=== PATIENT | female | born 1950 | race American Indian/Alaskan Native ===

== ENCOUNTER 2016-12-18 06:33 | Day surgery (SDC) | payer OTHER, MEDICARE ==
[~2016-12-18 06:33] MED LIST: Dextrose 5%-0.45% NaCl 1,000 ML IV SCH; Midazolam 1 MG/ML 2 ML SDV ONE; Sodium Chloride 0.9% 10 ML Syringe FLUSH PRN; fentaNYL 100 MCG/2 ML SDV ONE
[2016-12-18] MEDS ORDERED: Dextrose 5%-0.45% NaCl 1,000 ML IV SCH (07:00)
[2016-12-18] MEDS ORDERED: Sodium Chloride 0.9% 10 ML Syringe FLUSH PRN (07:00)
[2016-12-18] MEDS ORDERED: Midazolam 1 MG/ML 2 ML SDV IV ONE ×3 (07:10→14:36)
[2016-12-18] MEDS ORDERED: fentaNYL 100 MCG/2 ML SDV IV ONE ×3 (07:10→14:36)
[2016-12-18 09:32] VITALS: BP 136/65
--- NOTE | 2016-12-18 10:18 | OR ---
DATE: 12/18/2016 PROCEDURE: Esophagogastroduodenoscopy and multiple pinch biopsies. INSTRUMENT USED: GIF-H180 Olympus video panendoscope. PREMEDICATIONS: No oral topical anesthesia used. Fentanyl 100 mcg intravenous, Versed 2 mg intravenous. The procedure was done under pulse oximetry, BP recording, and monitoring manager. INDICATION: The patient with persistent abdominal pain and dyspepsia, unexplained, and not responsive to medical measures. Esophagogastroduodenoscopy is performed for detection of any active erosive lesions, Isidro's esophagus and/or malignancy also under consideration, H. pylori status to be determined, small bowel biopsies to be obtained for celiac disease if indicated, endoscopic hemostasis therapy if needed. DESCRIPTION OF PROCEDURE: The scope was passed with ease. Adequate visualization of the esophagus was made from proximal to distal areas. No upper esophageal lesions identified. No distal esophageal stricture. No uphill or downhill esophageal varices. No Flor-Cowan tear. No evidence of erosive esophagitis by Forest criteria. No esophageal polyp or tumor mass identified. Z-line was seen at around 40 cm distal to the oral verge, configuration consistent with grade 1 by ZAP classification. No proximal gastric varices noted. Gastric fundus examination by retroflexion showed no polypoid lesions. No gastric ulcer, malignant mass, or vascular ectasia identified. Duodenal bulb showed no ulcer. Visualized second part of the duodenum was unremarkable. Multiple pinch biopsies, 4 in number were taken from different areas of the second part of the duodenum, tissues were also obtained from 9 and 12 o'clock positions of the duodenal bulb and sent for any histopathologic evidence of celiac disease. Multiple pinch biopsies were also obtained from the gastric antrum and proximal body and sent for PyloriTek test for H. pylori and histopathology. No bleeding was noted from any of the visualized areas at the completion of examination. Photographs were taken of the duodenal bulb, gastric antrum, fundus, and distal esophagus. IMPRESSION: Normal study. The patient tolerated the procedure well. [facility] /[id number]
== END 2016-12-18 09:25 | disposition home or self-care (01) ==
LOC: DL.ENDO 06:33
PROVIDERS: ATTEND Internal Medicine Gastroenterology
DX: K31.89 Other diseases of stomach and duodenum (principal); Z88.8 Allergy status to other drugs, medicaments and biological substances
CPT/HCPCS: 43239; 87077; J2250; J3010; J7042; 88305

== ENCOUNTER 2021-06-04 19:40 | Emergency (ER) | payer MEDICARE, OTHER ==
[2021-06-04] MEDS ORDERED: Cyclobenzaprine 10 MG Tab PO ONE (19:41)
[2021-06-04 20:38] LABS: ANION GAP 15.7 mEq/L (7-13)
--- NOTE | 2021-06-04 20:43 | EDM.PDOC ---
ED HPI GENERAL MEDICAL PROBLEM - General Chief Complaint: Genitourinary Problem Stated Complaint: KIDNEYS ON LEFT SIDE HURT Time Seen by Provider: 06/04/21 20:10 Source of Information: Reports: Patient, RN, RN Notes Reviewed History Limitations: Reports: No Limitations - History of Present Illness INITIAL COMMENTS - FREE TEXT/NARRATIVE: Dago is a 71 y/o female who presents to the ED via personal vehicle with complaints of left flank pain and decreased urine volume. The patient states her symptoms began one week ago, after moving several baskets of laundry up her stairs, and have maintained in severity over that time. Additionally, she reports shaking chills that began three days ago. She denies fever, nausea, vomiting, abdominal pain, dysuria, hematuria, diarrhea, or constipation. She denies saddle paraesthesia, incontinence of bowel/bladder, or inability to urinate. She has taken one dose of ibuprofen 600mg with no alleviation in symptoms. 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 Left Flank Pain Score (Numeric/FACES): 5 - Related Data Allergies Allergy/AdvReac Type Severity Reaction Status Date / Time fexofenadine Allergy Other Verified 06/04/21 19:59 fluticasone Allergy Other Verified 06/04/21 19:59 formoterol Allergy Other Verified 06/04/21 19:59 lactose Allergy Other Verified 06/04/21 19:59 loratadine Allergy Seizure Verified 06/04/21 19:59 meloxicam [From Mobic] Allergy Other Verified 06/04/21 19:59 metformin Allergy Other Verified 06/04/21 19:59 phenytoin Allergy Other Verified 06/04/21 19:59 pseudoephedrine Allergy Seizure Verified 06/04/21 19:59 Home Meds: Home Meds PHENobarbitaL [PHENobarbital] 32.4 mg PO QID 03/14/14 [History] Pantoprazole [Pantoprazole Sodium] 40 mg PO DAILY 03/14/14 [History] Albuterol [Proair HFA] 2 puff INH Q6HR PRN 12/07/14 [History] Tiotropium [Spiriva Handihaler] 18 mcg INH ASDIRECTED 11/27/15 [History] Aspirin 325 mg PO DAILY 12/14/15 [History] atorvaSTATin [Lipitor] 20 mg PO BEDTIME 01/06/16 [History] Past Medical History HEENT History: Reports: Allergic Rhinitis, Impaired Vision Cardiovascular History: Reports: High Cholesterol Respiratory History: Reports: COPD Gastrointestinal History: Reports: Diverticulosis, GERD, Helicobacter Pylori Genitourinary History: Reports: UTI, Recurrent 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: Reports: Musculoskeletal History: Reports: Arthritis Neurological History: Reports: Seizure Psychiatric History: Reports: None Endocrine/Metabolic History: Reports: Diabetes, Type II, Other (See Below) Other Endocrine/Metabolic History: PREDIABETES Hematologic History: Reports: None Immunologic History: Reports: None Oncologic (Cancer) History: Reports: None Dermatologic History: Reports: Other (See Below) Other Dermatologic History: ACNE ROSACEA - Infectious Disease History Infectious Disease History: Reports: Chicken Pox, Measles, Mumps - Past Surgical History Head Surgeries/Procedures: Reports: None HEENT Surgical History: Reports: None Cardiovascular Surgical History: Reports: None Respiratory Surgical History: Reports: None GI Surgical History: Reports: Appendectomy, Cholecystectomy, Colonoscopy, EGD Female Surgical History: Reports: Cystoscopy Endocrine Surgical History: Reports: None Neurological Surgical History: Reports: None Musculoskeletal Surgical History: Reports: None Oncologic Surgical History: Reports: None Dermatological Surgical History: Reports: None Social & Family History - Family History Family Medical History: No Pertinent Family History Cardiac: Reports: CAD, High Cholesterol, Hypertension - Tobacco Use Tobacco Use Status *Q: Current Every Day Tobacco User Years of Tobacco use: 40 Packs/Tins Daily: 0.5 - Caffeine Use Caffeine Use: Reports: Coffee - Recreational Drug Use Recreational Drug Use: No - Living Situation & Occupation Living situation: Reports: , with Family Occupation: Employed ED ROS GENERAL - Review of Systems Review Of Systems: Comprehensive ROS is negative, except as noted in HPI. ED EXAM, RENAL/ - Physical Exam Exam: See Below Exam Limited By: No Limitations General Appearance: Alert, No Apparent Distress Eye Exam: Bilateral Eye: EOMI, Normal Inspection Ears: Normal External Exam, Hearing Grossly Normal Nose: Normal Inspection, Normal Mucosa, No Blood Throat/Mouth: Normal Inspection, Normal Oropharynx, Normal Voice, No Airway Compromise Head: Atraumatic, Normocephalic Neck: Normal Inspection, Supple, Non-Tender, Full Range of Motion Respiratory/Chest: No Respiratory Distress, Lungs Clear, Normal Breath Sounds, No Accessory Muscle Use, Chest Non-Tender Cardiovascular: Normal Peripheral Pulses, Regular Rate, Rhythm, No Gallop, No Murmur, No Rub GI/Abdominal: Normal Bowel Sounds, Soft, Non-Tender, No Distention, No Abnormal Bruit, No Mass, Pelvis Stable. No: Guarding, Rigid, Rebound (Female) Exam: Deferred Rectal (Female) Exam: Deferred Back Exam: Normal Inspection, Full Range of Motion, CVA Tenderness (L), Muscle Spasm (To palpation of left, lateral back). No: CVA Tenderness (R), Paraspinal Tenderness, Vertebral Tenderness Extremities: Normal Inspection, Normal Range of Motion Neurological: Alert, Oriented, CN II-XII Intact, Normal Cognition, Normal Gait, No Motor/Sensory Deficits Psychiatric: Normal Affect, Normal Mood Skin Exam: Warm, Dry, Intact, Normal Color, No Rash. No: Cyanosis, Ecchymosis, Erythema, Jaundice, Mottled, Pallor, Petechiae Lymphatic: No Adenopathy Course - Vital Signs Last Recorded V/S: Last Vital Signs Temp 97 F 06/04/21 22:59 Pulse 71 06/04/21 22:59 Resp 14 06/04/21 22:59 BP 180/79 H 06/04/21 22:59 Pulse Ox 97 06/04/21 22:59 - Orders/Labs/Meds Labs: Laboratory Tests 06/04/21 06/04/21 06/04/21 Range/Units 19:49 20:12 20:12 WBC 11.4 H (5.0-10.0) 10^3/uL RBC 4.11 L (4.2-5.4) 10^6/uL Hgb 13.1 (12.0-16.0) g/dL Hct 40.4 (37.0-47.0) % MCV 98.3 (80-100) fL MCH 31.9 (27.0-34.0) pg MCHC 32.4 L (33.0-35.0) g/dL Plt Count 370 (150-450) 10^3/uL Neut % (Auto) 69.1 (42.2-75.2) % Lymph % (Auto) 21.3 (20.5-50.1) % Ferry % (Auto) 7.1 (2-8) % Eos % (Auto) 2.1 (1.0-3.0) % Baso % (Auto) 0.4 (0.0-1.0) % Sodium 143 (136-145) mmol/L Potassium 3.7 (3.5-5.1) mmol/L Chloride 109 H (98-107) mmol/L Carbon Dioxide 22 (21-32) mmol/L Anion Gap 15.7 H (7-13) mEq/L BUN 23 H (7-18) mg/dL Creatinine 1.38 H (0.55-1.02) mg/dL Est Cr Clr Drug Dosing 30.00 mL/min Estimated GFR (MDRD) 38 BUN/Creatinine Ratio 16.7 (No establ ref range) Glucose 173 H (70-99) mg/dL Lactic Acid (0.4-2.0) mmol/L Calcium 8.3 L (8.5-10.1) mg/dL Total Bilirubin 0.2 (0.2-1.0) mg/dL AST 14 L (15-37) U/L ALT 26 (14-59) U/L Alkaline Phosphatase 117 H (46-116) U/L C-Reactive Protein 1.2 H (0.0-0.9) mg/dL B-Natriuretic Peptide 141 H (0-100) pg/ml Total Protein 6.9 (6.4-8.2) g/dL Albumin 2.6 L (3.4-5.0) g/dL Globulin 4.3 Albumin/Globulin Ratio 0.60 Urine Color Yellow (YELLOW) Urine Appearance Slightly cloudy (CLEAR) Urine pH 6.0 (5.0-9.0) Ur Specific [place] >= 1.030 (1.005-1.030) Urine Protein >=300 H (NEGATIVE) Urine Glucose (UA) 500 H (NEGATIVE) Urine Ketones Negative (NEGATIVE) Urine Occult Blood Small H (NEGATIVE) Urine Nitrite Negative (NEGATIVE) Urine Bilirubin Negative (NEGATIVE) Urine Urobilinogen 0.2 (0.2-1.0) mg/dL Ur Leukocyte Esterase Negative (NEGATIVE) Urine RBC 0-5 (0-5) /HPF Urine WBC 30-40 H (0-5/HPF) /HPF Ur Epithelial Cells Few (NOT SEEN) /HPF Amorphous Sediment Occasional (NOT SEEN) /HPF Urine Bacteria Few (0-FEW/HPF) /HPF Urine Mucus Not seen (NOT SEEN) /LPF Urinalysis Comment See note 09/25/21 Range/Units 20:12 WBC (5.0-10.0) 10^3/uL RBC (4.2-5.4) 10^6/uL Hgb (12.0-16.0) g/dL Hct (37.0-47.0) % MCV (80-100) fL MCH (27.0-34.0) pg MCHC (33.0-35.0) g/dL Plt Count (150-450) 10^3/uL Neut % (Auto) (42.2-75.2) % Lymph % (Auto) (20.5-50.1) % Ferry % (Auto) (2-8) % Eos % (Auto) (1.0-3.0) % Baso % (Auto) (0.0-1.0) % Sodium (136-145) mmol/L Potassium (3.5-5.1) mmol/L Chloride (98-107) mmol/L Carbon Dioxide (21-32) mmol/L Anion Gap (7-13) mEq/L BUN (7-18) mg/dL Creatinine (0.55-1.02) mg/dL Est Cr Clr Drug Dosing mL/min Estimated GFR (MDRD) BUN/Creatinine Ratio (No establ ref range) Glucose (70-99) mg/dL Lactic Acid 1.4 (0.4-2.0) mmol/L Calcium (8.5-10.1) mg/dL Total Bilirubin (0.2-1.0) mg/dL AST (15-37) U/L ALT (14-59) U/L Alkaline Phosphatase (46-116) U/L C-Reactive Protein (0.0-0.9) mg/dL B-Natriuretic Peptide (0-100) pg/ml Total Protein (6.4-8.2) g/dL Albumin (3.4-5.0) g/dL Globulin Albumin/Globulin Ratio Urine Color (YELLOW) Urine Appearance (CLEAR) Urine pH (5.0-9.0) Ur Specific [place] (1.005-1.030) Urine Protein (NEGATIVE) Urine Glucose (UA) (NEGATIVE) Urine Ketones (NEGATIVE) Urine Occult Blood (NEGATIVE) Urine Nitrite (NEGATIVE) Urine Bilirubin (NEGATIVE) Urine Urobilinogen (0.2-1.0) mg/dL Ur Leukocyte Esterase (NEGATIVE) Urine RBC (0-5) /HPF Urine WBC (0-5/HPF) /HPF Ur Epithelial Cells (NOT SEEN) /HPF Amorphous Sediment (NOT SEEN) /HPF Urine Bacteria (0-FEW/HPF) /HPF Urine Mucus (NOT SEEN) /LPF Urinalysis Comment - Radiology Interpretation Free Text/Narrative:: [facility] [place] [facility] Final Radiology Report Call: [phone] assistance Online chat: [email or web address] Name: DAGO LUCAS Age: 71Years F Date: 06/04/2021 SSN: -- : [id number] Study: CT ABDOMEN PELVIS WO CONT Requesting Physician: Irish Seaman Images: [id number] Addl Studies: Provided Clinical History: r/o rental stone; Left flank pain Contrast: Without Contrast Medium: Contrast Amount: Contrast Method: Page 1 of 2 PROCEDURE INFORMATION: Exam: CT Abdomen And Pelvis Without Contrast Exam date and time: 06/04/2021 9:10 PM Age: 71 years old Clinical indication: Other: Blood and amorphous sediment in urine; Additional info: R/O rental stone; Left flank pain TECHNIQUE: Imaging protocol: Computed tomography of the abdomen and pelvis without contrast. Radiation optimization: All CT scans at this facility use at least one of these dose optimization techniques: automated exposure control; mA and/or kV adjustment per patient size (includes targeted exams where dose is matched to clinical indication); or iterative reconstruction. COMPARISON: CT Abdomen w Cont 12/11/2018 9:49 AM FINDINGS: Lungs: The visualized lung bases are clear. Liver: The liver is normal. Gallbladder and bile ducts: The gallbladder is nonvisualized, there may have been cholecystectomy. There is no intrahepatic bile duct dilation. Common bile duct diameter is 9 mm. This mild extrahepatic biliary ductal dilatation may be related to post cholecystectomy state. Pancreas: The pancreas is normal. Spleen: The spleen is normal. Adrenal glands: The adrenal glands are normal. Kidneys and ureters: There is no evidence of urolithiasis. There is no evidence of hydronephrosis. 11 mm smoothly marginated water density left renal lesion statistically reflects a benign cyst. Minimal peripheral right renal artery calcification. Stomach and bowel: Mild diffuse diverticulosis is present in the colon. There is no evidence of colitis/diverticulitis. Non-specific/nonobstructive intestinal gas pattern. Appendix: The appendix is not specifically identified. There is no evidence of fluid or inflammatory stranding at the base of the cecum. Intraperitoneal space: No free intraperitoneal air. No free intraperitoneal fluid. Vasculature: There is moderate diffuse calcific atherosclerotic plaque. There is no aortic aneurysm. Lymph nodes: There is no adenopathy. No pelvic adenopathy. Urinary bladder: Bladder is normal. Reproductive: The uterus is normal. 15 mm cyst right ovary. No specific follow- up is recommended. Bones/joints: No acute bony findings are identified. Soft tissues: There is no soft tissue abnormality seen. IMPRESSION: 1. No significant urinary tract abnormality identified. In a patient with hematuria additional urinary tract evaluation should be considered. 2. Mild extrahepatic biliary ductal dilatation following cholecystectomy. Correlate with LFTs. 3. Left renal lesion likely a benign cyst. No further workup is recommended. COMMENTS: Consistent with the [employer]'s Incidental Findings Committee white paper (J Am Ad Radiol 2018): Any incidental renal lesion less than 1 cm or classified as too small to characterize, or any incidental cystic renal lesion characterized as simple- appearing, is likely benign. No follow-up imaging is recommended for these lesions per consensus recommendations based on imaging criteria. Thank you for allowing us to participate in the care of your patient. Dictated and Authenticated by: Milton Dotson MD 06/04/2021 10:34 PM Central Time ([place] & [place]) - Re-Assessments/Exams Free Text/Narrative Re-Assessment/Exam: 06/04/21 UA and blood work sent. Will obtain a CT abdomen/pelvis without given HPI, occult blood, and amorphous sediment in urine (no bacteria). Findings of examination, imaging, and lab work reviewed with patient. Will treat muscle spasm with Flexeril. Supportive cares for muscle spasm discussed. Patient instructed to follow up with PCP in 3-5 days regarding today's visit. Red flag signs and symptoms which would warrant reevaluation reviewed. Patient verbalized understanding and agreement with the plan of care. Departure - Departure Time of Disposition: 22:56 Disposition: Home, Self-Care 01 Condition: Fair Clinical Impression: Acute left flank pain, Renal cyst, left, Cyst of right ovary, Muscle spasm - Discharge Information *PRESCRIPTION DRUG MONITORING PROGRAM REVIEWED*: Not Applicable *COPY OF PRESCRIPTION DRUG MONITORING REPORT IN PATIENT LUCRETIA: Not Applicable Instructions: Muscle Cramps and Spasms Forms: ED Department Discharge Additional Instructions: Rx: cyclobenzaprine 1.) You may take ibuprofen (Motrin/Advil) 400mg every six hours, as pain and swelling persist. You may also take acetaminophen (Tylenol) 650mg every six hours, as pain persists. You may stagger these medications so you are taking a dose every three hours. 2.) You may apply ice to the affected areas, as pain persists; 20 minutes, every hour. 3.) You may apply BioFreeze (or similar ointment/cream) to area of pain. 4.) Follow up with your primary care provider in 3-5 days regarding today's visit, sooner should symptoms persist or worsen. Sepsis Event Note (ED) - Evaluation Sepsis Screening Result: No Definite Risk - Focused Exam Vital Signs: Vital Signs Temp Pulse Resp BP Pulse Ox 06/04/21 22:59 97 F 71 14 180/79 H 97 06/04/21 22:15 68 16 98 06/04/21 19:49 96.2 F L 96 16 142/75 H 100
--- NOTE | 2021-06-04 22:34 | CT ---
PROCEDURE INFORMATION: Exam: CT Abdomen And Pelvis Without Contrast Exam date and time: 06/04/2021 9:10 PM Age: 71 years old Clinical indication: Other: Blood and amorphous sediment in urine; Additional info: R/O rental stone; Left flank pain TECHNIQUE: Imaging protocol: Computed tomography of the abdomen and pelvis without contrast. Radiation optimization: All CT scans at this facility use at least one of these dose optimization techniques: automated exposure control; mA and/or kV adjustment per patient size (includes targeted exams where dose is matched to clinical indication); or iterative reconstruction. COMPARISON: CT Abdomen w Cont 12/11/2018 9:49 AM FINDINGS: Lungs: The visualized lung bases are clear. Liver: The liver is normal. Gallbladder and bile ducts: The gallbladder is nonvisualized, there may have been cholecystectomy. There is no intrahepatic bile duct dilation. Common bile duct diameter is 9 mm. This mild extrahepatic biliary ductal dilatation may be related to post cholecystectomy state. Pancreas: The pancreas is normal. Spleen: The spleen is normal. Adrenal glands: The adrenal glands are normal. Kidneys and ureters: There is no evidence of urolithiasis. There is no evidence of hydronephrosis. 11 mm smoothly marginated water density left renal lesion statistically reflects a benign cyst. Minimal peripheral right renal artery calcification. Stomach and bowel: Mild diffuse diverticulosis is present in the colon. There is no evidence of colitis/diverticulitis. Non-specific/nonobstructive intestinal gas pattern. Appendix: The appendix is not specifically identified. There is no evidence of fluid or inflammatory stranding at the base of the cecum. Intraperitoneal space: No free intraperitoneal air. No free intraperitoneal fluid. Vasculature: There is moderate diffuse calcific atherosclerotic plaque. There is no aortic aneurysm. Lymph nodes: There is no adenopathy. No pelvic adenopathy. Urinary bladder: Bladder is normal. Reproductive: The uterus is normal. 15 mm cyst right ovary. No specific follow-up is recommended. Bones/joints: No acute bony findings are identified. Soft tissues: There is no soft tissue abnormality seen. IMPRESSION: 1. No significant urinary tract abnormality identified. In a patient with hematuria additional urinary tract evaluation should be considered. 2. Mild extrahepatic biliary ductal dilatation following cholecystectomy. Correlate with LFTs. 3. Left renal lesion likely a benign cyst. No further workup is recommended. COMMENTS: Consistent with the [employer]'s Incidental Findings Committee white paper (J Am Ad Radiol 2018): Any incidental renal lesion less than 1 cm or classified as too small to characterize, or any incidental cystic renal lesion characterized as simple-appearing, is likely benign. No follow-up imaging is recommended for these lesions per consensus recommendations based on imaging criteria.
[2021-06-04 23:00] VITALS: BP 180/79; PULSE 71
[2021-06-04] MEDS ORDERED: Cyclobenzaprine 10 MG Tab ONE (23:03)
== END 2021-06-04 23:09 | disposition home or self-care (01) ==
LOC: DL.ED 19:40
DX: N83.201 Unspecified ovarian cyst, right side (principal); N28.1 Cyst of kidney, acquired; M62.838 Other muscle spasm; E78.00 Pure hypercholesterolemia, unspecified; J44.9 Chronic obstructive pulmonary disease, unspecified; K21.9 Gastro-esophageal reflux disease without esophagitis; E11.9 Type 2 diabetes mellitus without complications; Z91.011 Allergy to milk products; Z88.5 Allergy status to narcotic agent; Z88.8 Allergy status to other drugs, medicaments and biological substances; Z79.899 Other long term (current) drug therapy
CPT/HCPCS: 36415; 74176; 80053; 81001; 83605; 83880; 85025; 86140; 99284; A9270

== ENCOUNTER 2024-10-07 07:34 | Inpatient (IN) | payer MEDICARE, MEDICAID, OTHER ==
[2024-10-07 07:57] LABS: BASOPHILS PERCENT AUTO 0.1 % (0.0-1.0); HEMATOCRIT 44.2 % (37.0-47.0); HEMOGLOBIN 13.8 g/dL (12.0-16.0); LYMPHOCYTES PERCENT AUTO 6.5 % (20.5-50.1); MEAN CORPUSCULAR HEMOGLOBIN 32.2 pg (27.0-34.0); MEAN CORPUSCULAR HGB CONC 31.2 g/dL (33.0-35.0); MONOCYTES PERCENT AUTO 4.9 % (2-8); NEUTROPHILS PERCENT AUTO 88.5 % (42.2-75.2); PLATELET COUNT,PLT 416 10^3/uL (150-450); RED BLOOD CELL COUNT 4.29 10^6/uL (4.2-5.4); WHITE BLOOD CELL COUNT,WBC 18.7 10^3/uL (5.0-10.0)
[2024-10-07] MEDS ORDERED: Sodium Chloride 0.9% 10 ML Syringe FLUSH PRN (08:09)
[2024-10-07 08:35] LABS: ALBUMIN 3.1 g/dL (3.4-5.0); ANION GAP 29.3 mEq/L (7-13); BILIRUBIN TOTAL 0.3 mg/dL (0.2-1.0); BUN/CREATININE RATIO 26.5 (No establ ref range); CALCIUM 9.7 mg/dL (8.5-10.1); CREATININE 2.53 mg/dL (0.55-1.02); EST CRCL DRUG DOSING (CG) 15.66 mL/min; POTASSIUM,K 5.3 mmol/L (3.5-5.1); PROTEIN TOTAL,TP 8.1 g/dL (6.4-8.2)
[2024-10-07] MEDS: cefTRIAXone 2 GM Vial IVPUSH ONE (08:39)
[2024-10-07] MEDS: Lactated Ringers 1,000 ML IV ONE ×2 (08:39→09:32)
[2024-10-07 08:44] LABS: A/G RATIO 0.62; LACTIC ACID 2.6 mmol/L (0.4-2.0)
[2024-10-07 09:02] LABS: APPEARANCE,URINE CLOUDY (CLEAR); BILIRUBIN,URINE MODERATE (NEGATIVE); COLOR,URINE YELLOW (YELLOW); GLUCOSE,URINE NEGATIVE (NEGATIVE); KETONES,URINE 15 (NEGATIVE); LEUKOCYTE ESTERASE,URINE SMALL (NEGATIVE); NITRITE,URINE NEGATIVE (NEGATIVE); OCCULT BLOOD,URINE MODERATE (NEGATIVE); PH,URINE 5.5 (5.0-9.0); PROTEIN,URINE >=300 (NEGATIVE); UROBILINOGEN,URINE 0.2 mg/dL (0.2-1.0)
[2024-10-07 09:11] LABS: BACTERIA,URINE MANY /HPF (0-FEW/HPF); EPITHELIAL CELLS,URINE FEW /HPF (NOT SEEN); WBC,URINE >100 /HPF (0-5/HPF)
[2024-10-07 09:53] LABS: O2 DELIVERY DEVICE ROOM AIR
[2024-10-07 09:57] LABS: PCO2 VENOUS 23 mmHg (41-51)
[2024-10-07 09:58] LABS: BICARBONATE,VENOUS 8 mmol/l (19-25); O2 SATURATION VENOUS 59.6 % (60-80); PH,VENOUS 7.15 (7.31-7.41); PO2 VENOUS 37 mmHg (35-42)
[2024-10-07 09:59] LABS: BASE EXCESS VENOUS -19.8 mmol/l ((-2)-(+3))
[2024-10-07 10:11] LABS: KETONES,BLOOD SMALL
[2024-10-07 11:04] LABS: ANION GAP 24.7 mEq/L (7-13); BLOOD UREA NITROGEN,BUN 64 mg/dL (7-18); CALCIUM 8.8 mg/dL (8.5-10.1); CARBON DIOXIDE,CO2 10 mmol/L (21-32); CHLORIDE,CL 117 mmol/L (98-107); CREATININE 2.01 mg/dL (0.55-1.02); EST CRCL DRUG DOSING (CG) 19.71 mL/min; ESTIMATED GFR 26 mL/min (>=60); GLUCOSE RANDOM 158 mg/dL (70-99); POTASSIUM,K 5.7 mmol/L (3.5-5.1); SODIUM,NA 146 mmol/L (136-145)
[2024-10-07] MEDS: Dextrose 5%-0.45% NaCl 1,000 ML IV SCH (11:07)
[2024-10-07 11:08] LABS: MAGNESIUM 2.1 mg/dL (1.8-2.4); PHOSPHORUS 5.5 mg/dL (2.6-4.7)
[2024-10-07] MEDS: Famotidine 20 MG Tab PO ONE (11:42)
[2024-10-07] MEDS ORDERED: Melatonin 3 MG Tab PO PRN (12:34)
[2024-10-07] MEDS ORDERED: Albuterol/Ipratropium 3.0-0.5 MG/3 ML Neb Soln NEB PRN (12:34)
[2024-10-07] MEDS ORDERED: Ondansetron 4 MG/2 ML SDV IVPUSH PRN (12:34)
[2024-10-07] MEDS ORDERED: Docusate Sodium 100 MG Cap PO PRN (12:34)
[2024-10-07] MEDS ORDERED: Bisacodyl 5 MG Tab PO PRN (12:34)
[2024-10-07 13:02] LABS: O2 DELIVERY DEVICE ROOM AIR
[2024-10-07 13:05] LABS: PCO2 VENOUS 23 mmHg (41-51); PO2 VENOUS 51 mmHg (35-42)
[2024-10-07 13:06] LABS: BASE EXCESS VENOUS -18.3 mmol/l ((-2)-(+3)); BICARBONATE,VENOUS 9 mmol/l (19-25); O2 SATURATION VENOUS 79.7 % (60-80); PH,VENOUS 7.19 (7.31-7.41)
[2024-10-07 13:18] LABS: ANION GAP 24.8 mEq/L (7-13); CREATININE 1.75 mg/dL (0.55-1.02); EST CRCL DRUG DOSING (CG) 23.68 mL/min; POTASSIUM,K 4.8 mmol/L (3.5-5.1)
[2024-10-07] MEDS: PHENobarbital 16.2 MG Tab PO SCH (13:20)
[2024-10-07 17:49] LABS: ANION GAP 21.2 mEq/L (7-13); CALCIUM 8.9 mg/dL (8.5-10.1); CREATININE 1.41 mg/dL (0.55-1.02); EST CRCL DRUG DOSING (CG) 29.39 mL/min; POTASSIUM,K 4.2 mmol/L (3.5-5.1)
[2024-10-07] MEDS ORDERED: 50% Dextrose in Water 50 ML Syringe IVPUSH PRN ×2 (18:12→18:20)
[2024-10-07] MEDS ORDERED: Glucagon,Human Recombinant 1 MG Vial IM PRN ×2 (18:12→18:20)
[2024-10-07] MEDS: Insulin Lispro 100 Units/ML 3 ML Vial SUBCUT SCH (18:30)
[2024-10-07] MEDS: Insulin Lispro 100 Units/ML 3 ML Vial SUBCUT ONE (18:34)
[2024-10-07] MEDS: Check Patch *NICOTINE TRDERM SCH (20:41)
[2024-10-07] MEDS: Rosuvastatin 10 MG Tab PO SCH (20:41)
[2024-10-07] MEDS: Heparin Sodium 5,000 Units/ML Vial SUBCUT SCH (20:41)
[2024-10-08 05:47] LABS: BASOPHILS PERCENT AUTO 0.2 % (0.0-1.0); EOSINOPHILS PERCENT AUTO 0.6 % (1.0-3.0); HEMATOCRIT 37.4 % (37.0-47.0); HEMOGLOBIN 12.2 g/dL (12.0-16.0); LYMPHOCYTES PERCENT AUTO 15.8 % (20.5-50.1); MEAN CORPUSCULAR HEMOGLOBIN 32.4 pg (27.0-34.0); MEAN CORPUSCULAR HGB CONC 32.6 g/dL (33.0-35.0); MEAN CORPUSCULAR VOLUME 99.5 fL (80-100); MONOCYTES PERCENT AUTO 8.2 % (2-8); NEUTROPHILS PERCENT AUTO 75.2 % (42.2-75.2); PLATELET COUNT,PLT 279 10^3/uL (150-450); RED BLOOD CELL COUNT 3.76 10^6/uL (4.2-5.4); WHITE BLOOD CELL COUNT,WBC 11.5 10^3/uL (5.0-10.0)
[2024-10-08] MEDS: Tiotropium Bromide 4 GM Inhalation Spray (2.5mcg/1 dose; 10 doses) INH SCH (05:49)
[2024-10-08 06:11] LABS: ANION GAP 18.1 mEq/L (7-13); CREATININE 1.06 mg/dL (0.55-1.02); EST CRCL DRUG DOSING (CG) 39.1 mL/min; POTASSIUM,K 4.1 mmol/L (3.5-5.1)
[2024-10-08 07:56] LABS: HEMOGLOBIN A1C 6.1 % (<5.7)
[2024-10-08] MEDS: Nicotine 14 MG/24 Hr Patch TRDERM SCH (09:53)
[2024-10-08] MEDS: cefTRIAXone 2 GM Vial IVPUSH SCH (09:56)
[2024-10-08] MEDS: Aspirin 81 MG Tab.EC PO SCH (09:57)
[2024-10-08] MEDS: Acetaminophen 325 MG Tab PO PRN (13:25)
[2024-10-09 10:19] LABS: BASOPHILS PERCENT AUTO 0.2 % (0.0-1.0); EOSINOPHILS PERCENT AUTO 0.3 % (1.0-3.0); HEMATOCRIT 34.3 % (37.0-47.0); HEMOGLOBIN 11.2 g/dL (12.0-16.0); LYMPHOCYTES PERCENT AUTO 18.9 % (20.5-50.1); MEAN CORPUSCULAR HEMOGLOBIN 32.7 pg (27.0-34.0); MEAN CORPUSCULAR HGB CONC 32.7 g/dL (33.0-35.0); MEAN CORPUSCULAR VOLUME 100.3 fL (80-100); MONOCYTES PERCENT AUTO 9.9 % (2-8); NEUTROPHILS PERCENT AUTO 70.7 % (42.2-75.2); PLATELET COUNT,PLT 269 10^3/uL (150-450); RED BLOOD CELL COUNT 3.42 10^6/uL (4.2-5.4); WHITE BLOOD CELL COUNT,WBC 11.4 10^3/uL (5.0-10.0)
[2024-10-09 10:34] LABS: ANION GAP 19.8 mEq/L (7-13); CREATININE 1.16 mg/dL (0.55-1.02); EST CRCL DRUG DOSING (CG) 35.73 mL/min; POTASSIUM,K 3.8 mmol/L (3.5-5.1)
[2024-10-10 06:51] LABS: BASOPHILS PERCENT AUTO 0.3 % (0.0-1.0); EOSINOPHILS PERCENT AUTO 2.3 % (1.0-3.0); HEMATOCRIT 34.4 % (37.0-47.0); HEMOGLOBIN 11.4 g/dL (12.0-16.0); LYMPHOCYTES PERCENT AUTO 26.7 % (20.5-50.1); MEAN CORPUSCULAR HEMOGLOBIN 33.1 pg (27.0-34.0); MEAN CORPUSCULAR HGB CONC 33.1 g/dL (33.0-35.0); NEUTROPHILS PERCENT AUTO 56.7 % (42.2-75.2); PLATELET COUNT,PLT 303 10^3/uL (150-450); RED BLOOD CELL COUNT 3.44 10^6/uL (4.2-5.4); WHITE BLOOD CELL COUNT,WBC 9.8 10^3/uL (5.0-10.0)
[2024-10-10 07:07] LABS: ANION GAP 18.4 mEq/L (7-13); CALCIUM 8.9 mg/dL (8.5-10.1); CREATININE 1.28 mg/dL (0.55-1.02); EST CRCL DRUG DOSING (CG) 32.38 mL/min; POTASSIUM,K 3.4 mmol/L (3.5-5.1)
[2024-10-10 07:42] VITALS: PULSE 86
[2024-10-10 11:33] VITALS: BP 129/66
[2024-10-10] MEDS: Bacitracin Oint 28.35 GM Tube TOP SCH (14:45)
[2024-10-10] MEDS: FLU (Fluad Triv) TS24-25 (65UP)/MF59C/PF 45 MCG/0.5 ML Syringe IM ONE (14:56)
== END 2024-10-10 14:58 | DRG 638 ==
LOC: DL.ED 07:34 → DL.MS 12:03
PROVIDERS: ADMIT Internal Medicine; ATTEND Internal Medicine
DX: E11.10 Type 2 diabetes mellitus with ketoacidosis without coma (principal); N17.9 Acute kidney failure, unspecified; N30.01 Acute cystitis with hematuria; J30.9 Allergic rhinitis, unspecified; H54.7 Unspecified visual loss; E78.00 Pure hypercholesterolemia, unspecified; J44.9 Chronic obstructive pulmonary disease, unspecified; K21.9 Gastro-esophageal reflux disease without esophagitis; M19.90 Unspecified osteoarthritis, unspecified site; F17.210 Nicotine dependence, cigarettes, uncomplicated; E87.5 Hyperkalemia; D72.829 Elevated white blood cell count, unspecified; R29.6 Repeated falls; E78.5 Hyperlipidemia, unspecified; I10 Essential (primary) hypertension; E86.0 Dehydration; Z90.49 Acquired absence of other specified parts of digestive tract; Z88.8 Allergy status to other drugs, medicaments and biological substances; Z79.82 Long term (current) use of aspirin; Z86.19 Personal history of other infectious and parasitic diseases; Z79.51 Long term (current) use of inhaled steroids; Z98.890 Other specified postprocedural states; Z79.02 Long term (current) use of antithrombotics/antiplatelets; Z79.899 Other long term (current) drug therapy
CPT/HCPCS: 36415; 70450; 71046; 73560-LT; 73600-LT; 80048; 80053; 81001; 82009; 82803; 82947; 83036; 83605; 83735; 84100; 84484; 85025; 87040; 87086; 87088; 87186; 87428-QW; 93005; 93010; 96361; 96374; 97116-GP; 97161-GP; 97165-GO; 97530-GO; 97530-GP; 99223; 99232; 99239; 99285; 99285-25; A9270-GY; J0696; J1644; J1815-GY; J7120; J7799

== ENCOUNTER 2024-10-10 13:21 | Inpatient (IN) | payer MEDICARE, MEDICAID, OTHER ==
[~2024-10-10 13:21] MED LIST changes: +50% Dextrose in Water 50 ML Syringe IVPUSH PRN; +Acetaminophen 325 MG Tab PO PRN; +Albuterol 6.7 GM Inhaler INH PRN; +Albuterol/Ipratropium 3.0-0.5 MG/3 ML Neb Soln NEB PRN; +Bisacodyl 5 MG Tab PO PRN; -Dextrose 5%-0.45% NaCl 1,000 ML IV SCH; +Docusate Sodium 100 MG Cap PO PRN; +Glucagon,Human Recombinant 1 MG Vial IM PRN; +Insulin Lispro 100 Units/ML 3 ML Vial SUBCUT SCH; +Melatonin 3 MG Tab PO PRN; -Midazolam 1 MG/ML 2 ML SDV ONE; +Ondansetron 4 MG/2 ML SDV IVPUSH PRN; +PHENOBARBITAL 32.4 MG PO SCH; -fentaNYL 100 MCG/2 ML SDV ONE
[2024-10-10] MEDS: Insulin Lispro 100 Units/ML 3 ML Vial SUBCUT SCH (14:27)
[2024-10-10] MEDS: PHENobarbital 16.2 MG Tab PO SCH (15:54)
[2024-10-10] MEDS ORDERED: Zolpidem 5 MG Tab PO PRN (18:30)
[2024-10-10] MEDS ORDERED: Melatonin 3 MG Tab PO PRN (19:30)
[2024-10-10] MEDS: Rosuvastatin 10 MG Tab PO SCH (20:15)
[2024-10-10] MEDS: Ciprofloxacin 500 MG Tab PO SCH (20:15)
[2024-10-10] MEDS: Calcium Carbonate/Vitamin D3 1250 MG-5 MCG Tab PO SCH (20:15)
[2024-10-10] MEDS: Heparin Sodium 5,000 Units/ML Vial SUBCUT SCH (20:16)
[2024-10-10] MEDS ORDERED: Non-Formulary Medication 1 Each (Ciprofloxacin Hcl [Cipro] 250 MG Tablet) PO SCH (21:00)
[2024-10-10] MEDS ORDERED: Non-Formulary Medication 1 Each (Rosuvastatin Calcium [Rosuvastatin Calcium] 20 MG Tablet) PO SCH (21:00)
[2024-10-10] MEDS ORDERED: Heparin Sodium 5,000 Units/ML Vial SUBCUT SCH (21:00)
[2024-10-10] MEDS: Check Patch *NICOTINE TRDERM SCH (21:01)
[2024-10-11] MEDS: Tiotropium Bromide 4 GM Inhalation Spray (2.5mcg/1 dose; 10 doses) INH SCH (07:59)
[2024-10-11] MEDS ORDERED: Bacitracin Oint 28.35 GM Tube TOP SCH (09:00)
[2024-10-11] MEDS ORDERED: Nicotine 14 MG/24 Hr Patch TRDERM SCH (09:00)
[2024-10-11] MEDS ORDERED: Aspirin 81 MG Tab.EC PO SCH (09:00)
[2024-10-11] MEDS ORDERED: cefTRIAXone 2 GM Vial IVPUSH SCH (09:00)
[2024-10-11] MEDS ORDERED: Non-Formulary Medication 1 Each (Tiotropium [Spiriva Handihaler] 18 MCG Kit) INH SCH (09:00)
[2024-10-11] MEDS: Aspirin 81 MG Tab.EC PO SCH (09:01)
[2024-10-11] MEDS: Bacitracin Oint 28.35 GM Tube TOP SCH (09:05)
[2024-10-11] MEDS: Nicotine 14 MG/24 Hr Patch TRDERM SCH (09:13)
[2024-10-11] MEDS: Non-Formulary Medication 1 Each (Alendronate Sodium [Alendronate Sodium] 70 MG Tablet) PO SCH (11:44)
[2024-10-12 07:40] VITALS: BP 133/53; PULSE 79
[2024-10-12] MEDS: Acetaminophen 325 MG Tab PO PRN (11:04)
== END 2024-10-12 13:10 | disposition home or self-care (01) | DRG 947 ==
LOC: DL.MS 15:01
PROVIDERS: ADMIT Internal Medicine; ATTEND Internal Medicine
DX: R53.81 Other malaise (principal); E11.10 Type 2 diabetes mellitus with ketoacidosis without coma; N17.9 Acute kidney failure, unspecified; N39.0 Urinary tract infection, site not specified; R29.6 Repeated falls; E87.5 Hyperkalemia; D72.829 Elevated white blood cell count, unspecified; M25.562 Pain in left knee; E78.5 Hyperlipidemia, unspecified; I10 Essential (primary) hypertension; F17.210 Nicotine dependence, cigarettes, uncomplicated; H54.7 Unspecified visual loss; K21.9 Gastro-esophageal reflux disease without esophagitis; M19.90 Unspecified osteoarthritis, unspecified site; G40.909 Epilepsy, unspecified, not intractable, without status epilepticus; Z90.49 Acquired absence of other specified parts of digestive tract; Z98.890 Other specified postprocedural states; Z79.899 Other long term (current) drug therapy; Z88.8 Allergy status to other drugs, medicaments and biological substances; Z79.51 Long term (current) use of inhaled steroids; Z79.82 Long term (current) use of aspirin; Z79.1 Long term (current) use of non-steroidal anti-inflammatories (NSAID); Z79.2 Long term (current) use of antibiotics; Z86.19 Personal history of other infectious and parasitic diseases; Z79.02 Long term (current) use of antithrombotics/antiplatelets
CPT/HCPCS: 82947; 99305; 99309; 99316; A9270-GY; J1644

== ENCOUNTER 2024-12-17 10:01 | Day surgery (SDC) | payer MEDICARE, MEDICAID, OTHER ==
[2024-12-17] MEDS ORDERED: Midazolam 1 MG/ML 2 ML SDV IV ONE (10:02)
[2024-12-17] MEDS ORDERED: Sodium Chloride 0.9% 10 ML Syringe IV ONE (10:02)
[2024-12-17] MEDS ORDERED: Dexamethasone 4 MG/ML SDV IV ONE (10:02)
[2024-12-17] MEDS ORDERED: Acetaminophen/Codeine 300-30 MG Tab PO PRN (10:15)
[2024-12-17] MEDS ORDERED: Acetaminophen 325 MG Tab PO PRN (10:15)
[2024-12-17] MEDS ORDERED: Ondansetron 4 MG/2 ML SDV IVPUSH PRN (10:15)
[2024-12-17 10:32] VITALS: PULSE 71
[2024-12-17] MEDS: Sodium Chloride 0.9% 10 ML Syringe FLUSH PRN (10:47)
[2024-12-17] MEDS: Moxifloxacin 0.5% Ophth Soln 3 ML Bottle EYELF ONE (10:48)
[2024-12-17] MEDS: Proparacaine 0.5% Ophth Soln 15 ML Bottle EYELF ONE (10:48)
[2024-12-17] MEDS: Povidone-Iodine 5% Sterile Ophth Soln 30 ML Bottle EYELF ONE (10:49)
[2024-12-17] MEDS: Timolol Maleate 0.5% Ophth Soln 5 ML Bottle EYELF ONE (10:50)
[2024-12-17] MEDS: Tropicamide 1% Ophth Soln 15 ML Bottle EYELF ONE (10:50)
[2024-12-17] MEDS: Phenylephrine 10% Ophth Soln 5 ML Bot EYELF ONE (10:50)
[2024-12-17] MEDS: Cataract Ophth Solution EYELF ONE (10:51)
[2024-12-17] MEDS: Proparacaine 0.5% Ophth Soln 15 ML Bottle EYERT ONE (10:52)
[2024-12-17] MEDS: Povidone-Iodine 5% Sterile Ophth Soln 30 ML Bottle EYERT ONE (10:52)
[2024-12-17] MEDS: Diclofenac Sodium 0.1% Ophth Soln 5 ML Bottle EYERT ONE (10:53)
[2024-12-17] MEDS: Apraclonidine 0.5% Ophth Soln 5 ML Bot EYERT ONE (10:53)
[2024-12-17] MEDS: Dexamethasone/Neomycin/Polymyxin B Ophth Oint 3.5 GM Tube EYERT ONE (10:56)
[2024-12-17] MEDS: VANCOmycin 500 MG SDV EYERT ONE (11:01)
[2024-12-17] MEDS: Lidocaine 1% 30 ML SDV INJECT ONE (11:01)
[2024-12-17 14:19] VITALS: BP 148/64
== END 2024-12-17 11:59 | disposition home or self-care (01) ==
LOC: DL.SDS 10:01
PROVIDERS: ATTEND Ophthalmology
DX: E11.36 Type 2 diabetes mellitus with diabetic cataract (principal); H25.812 Combined forms of age-related cataract, left eye; J44.9 Chronic obstructive pulmonary disease, unspecified; E11.22 Type 2 diabetes mellitus with diabetic chronic kidney disease; I12.9 Hypertensive chronic kidney disease with stage 1 through stage 4 chronic kidney disease, or unspecified chronic kidney disease; N18.4 Chronic kidney disease, stage 4 (severe); K21.9 Gastro-esophageal reflux disease without esophagitis; G40.909 Epilepsy, unspecified, not intractable, without status epilepticus; E78.5 Hyperlipidemia, unspecified; M81.0 Age-related osteoporosis without current pathological fracture
CPT/HCPCS: A9270-GY; J1100; J2003; J2250; J3370; J3490